=== PATIENT | male | born 1935 | race Caucasian/White ===

== ENCOUNTER 2017-10-26 13:29 | Inpatient (IN) | payer MEDICARE, OTHER ==
[~2017-10-26] VITALS: Ht 185.4 cm; Wt 103.1 kg
[~2017-10-26 13:29] MED LIST: CENTRUM SILVER1 EAC2 PO; COQ10; CYAN1000; HYDACE5 PO; LISI5 PO; METO25ER PO; OXYACE5T PO; TRAM50 PO; VYTORIN; WARF4; WARF4 PO; WARF5; [UNRECOGNIZED DRUG - OTHER]
[2017-10-26 14:24] LABS: BASOPHILS ABSOLUTE AUTO 0.03 K/mm3 (0.00-0.23); BASOPHILS PERCENT AUTO 0 % (0-2); EOSINOPHILS ABSOLUTE AUTO 0.14 K/mm3 (0.00-0.68); EOSINOPHILS PERCENT AUTO 2 % (0-6); Hematocrit 41.6 % (37.0-53.0); Hemoglobin 14.1 g/dL (13.5-17.5); IMMATURE GRAN ABSOLUTE AUTO 0.03 K/mm3 (0.00-0.10); IMMATURE GRAN PERCENT AUTO 0 % (0-1); LYMPHOCYTES ABSOLUTE AUTO 1.26 K/mm3 (0.84-5.20); LYMPHOCYTES PERCENT AUTO 19 % (21-46); MONOCYTES ABSOLUTE AUTO 0.54 K/mm3 (0.16-1.47); MONOCYTES PERCENT AUTO 8 % (4-13); Mean Corpuscular HGB 30.9 pg (26.0-34.0); Mean Corpuscular HGB Conc 33.9 g/dL (31.5-36.5); Mean Corpuscular Volume 91 fL (80-100); Mean Platelet Volume 9.1 fL (9.1-12.4); NEUTROPHILS ABSOLUTE AUTO 4.68 K/mm3 (1.96-9.15); NEUTROPHILS PERCENT AUTO 70 % (41-73); Platelet Count 217 K/mm3 (150-400); RDW Coefficient Variation 13.6 % (11.7-14.2); RDW Standard Deviation 45.7 fL (35.1-46.3); Red Blood Cell Count 4.56 M/mm3 (4.30-5.90); White Blood Cell Count 6.68 K/mm3 (4.00-11.30)
[2017-10-26 14:41] LABS: Alanine Aminotransfer (ALT/SGP 27 U/L (12-78); Albumin, Blood 3.4 g/dL (3.4-5.0); Albumin/Globulin Ratio 1.1 (0.8-1.8); Alk Phos 60 U/L (50-136); Anion Gap 11 mmol/L (6-16); Aspartate Aminotrans (AST/SGOT 24 U/L (12-37); Bilirubin, Total 0.5 mg/dL (0.1-1.0); Blood Urea Nitrogen 18 mg/dL (8-24); Bun/Creatinine Ratio 18.3 (12.0-20.0); CO2, Blood 23 mmol/L (21-32); Calcium, Blood 8.5 mg/dL (8.5-10.1); Chloride, Blood 104 mmol/L (98-108); Creatinine, Blood 0.99 mg/dL (0.60-1.20); Globulin, Blood 3.2 g/dL (2.2-4.0); Glomerular Filtration Rate >60 (60-); Glucose, Blood 214 mg/dL (70-99); Potassium, Blood 4.1 mmol/L (3.5-5.5); Sodium, Blood 138 mmol/L (136-145); Total Protein, Blood 6.6 g/dL (6.4-8.2)
[2017-10-26 15:13] LABS: Magnesium, Blood 2.2 mg/dL (1.6-2.4)
[2017-10-26] MEDS ORDERED: Enablex7.5 MG PO (15:15)
[2017-10-26 15:27] LABS: International Normalized Ratio 2.5; Prothrombin Time Results 26.8 Sec (9.7-11.5)
[2017-10-26 16:02] LABS: Troponin I <0.015 ng/mL (0.000-0.040)
[2017-10-26 18:48] LABS: Source, Urine Catheter
[2017-10-26 19:11] LABS: Bilirubin, Urine Neg (Neg); Blood, Urine Neg (Neg); Glucose Qualitative, Urine Neg (Neg); Ketones, Urine Neg (Neg); Leukocyte Esterase, Urine Neg (Neg); Nitrite, Urine Neg (Neg); Protein, Urine Neg (Neg); Specific Gravity, Urine 1.025 (1.003-1.022); Urobilinogen, Urine NORM (Normal)
[2017-10-26 19:18] LABS: Appearance, Urine Hazy (Clear); Color, Urine Yellow (P-Yellow)
[2017-10-26 19:19] LABS: Red Blood Cells, Urine Not Seen /hpf (0-2); White Blood Cells, Urine Not Seen /hpf (0-5)
[2017-10-26 19:20] LABS: Bacteria Not Seen /hpf; Squamous Epithelial Cells Not Seen /hpf (Few)
[2017-10-27 15:30] LABS: International Normalized Ratio 2.39; Prothrombin Time Results 25.5 Sec (9.7-11.5)
[2017-10-28 05:30] LABS: International Normalized Ratio 2.13; Prothrombin Time Results 22.7 Sec (9.7-11.5)
[2017-10-29 05:36] LABS: International Normalized Ratio 2.22; Prothrombin Time Results 23.7 Sec (9.7-11.5)
[2017-10-30 06:26] LABS: International Normalized Ratio 2.26; Prothrombin Time Results 24.1 Sec (9.7-11.5)
[2017-10-31 06:00] LABS: International Normalized Ratio 2.19; Prothrombin Time Results 23.3 Sec (9.7-11.5)
[2017-11-01 06:04] LABS: International Normalized Ratio 2.15; Prothrombin Time Results 22.9 Sec (9.7-11.5)
[2017-11-02 15:32] LABS: International Normalized Ratio 2.14; Prothrombin Time Results 22.8 Sec (9.7-11.5)
[2017-11-03 06:09] LABS: International Normalized Ratio 2.2; Prothrombin Time Results 23.4 Sec (9.7-11.5)
[2017-11-04 05:59] LABS: International Normalized Ratio 2.23; Prothrombin Time Results 23.8 Sec (9.7-11.5)
[2017-11-05 05:22] LABS: International Normalized Ratio 2.46; Prothrombin Time Results 26.3 Sec (9.7-11.5)
[2017-11-06 05:13] LABS: International Normalized Ratio 2.52
[2017-11-06] MEDS ORDERED: CLON.3TP TOP (10:25)
[2017-11-06] MEDS ORDERED: SENN187 PO (10:27)
[2017-11-06] MEDS ORDERED: Milk Of Ma400 MG/5 M PO (10:27)
[2017-11-06] MEDS ORDERED: ONDA4ODT MM (12:35)
== END 2017-11-06 13:37 | disposition home or self-care (01) | DRG 57 ==
LOC: ER 13:29 → MEDS 18:07 → ER 18:07 → MEDS 19:51 → ENPENDDIS 11-06 07:30 → MEDS 11-06 13:37
PROVIDERS: Emergency Medicine; Family Medicine
DX: G31.83 Neurocognitive disorder with Lewy bodies (principal); F02.81 Dementia in other diseases classified elsewhere, unspecified severity, with behavioral disturbance; R29.6 Repeated falls; I10 Essential (primary) hypertension; K21.9 Gastro-esophageal reflux disease without esophagitis; F48.2 Pseudobulbar affect; Z95.1 Presence of aortocoronary bypass graft; I25.10 Atherosclerotic heart disease of native coronary artery without angina pectoris; N40.0 Benign prostatic hyperplasia without lower urinary tract symptoms; E78.5 Hyperlipidemia, unspecified; M19.90 Unspecified osteoarthritis, unspecified site; Z79.01 Long term (current) use of anticoagulants; Z95.2 Presence of prosthetic heart valve
CPT/HCPCS: 36415; 51701; 71046; 80053; 81001; 82947; 83735; 83880; 84484; 85025; 85610; 93005; 93010; 97162; 97165; 97530; 99285; G8978; G8979; G8980; G8987; G8988; G8989